=== PATIENT | female | born 1980 | race Caucasian/White ===

== ENCOUNTER → 2024-03-04 09:55 | Outpatient (CLI) | payer OTHER, MEDICAID, SELFPAY ==
--- NOTE | 2024-03-04 10:00 | DI.MRI.S_ITS ---
PROCEDURE: MR CERVICAL SPINE WO CON INDICATIONS: BASELINE SCREENING/foraminal stenosis cervical reg TECHNIQUE: Noncontrast sagittal T1 spin echo and T2 fast spin echo, sagittal STIR, foraminal oblique sagittal T2 fast spin echo, and axial gradient echo or T2 fast spin echo through the cervical spine. COMPARISON: None. FINDINGS: Image quality: Excellent. Alignment and Curvature: There is normal bony alignment. Bone Marrow: Marrow demonstrates normal overall signal. Spinal Cord: Visualized spinal cord has normal size and signal. No cerebellar tonsillar herniation. Paraspinous Soft Tissues: No paravertebral masses. Prevertebral soft tissues are normal in thickness. C2-C3: Normal appearance. C3-C4: Arthropathy related moderate left and mild right foraminal stenosis. No central stenosis. C4-C5: Posterior disc osteophyte complex results in [id number] central stenosis. No foraminal stenosis C5-C6: Posterior disc osteophyte complex with hypertrophic uncovertebral arthropathy. Moderate central stenosis. Moderate bilateral foraminal stenosis. C6-C7: Posterior disc osteophyte complex with mild central stenosis. No foraminal stenosis. C7-T1: Normal appearance. IMPRESSION: Multilevel degenerative disc disease and arthropathy results in varying degrees of central and foraminal stenosis including moderate central and bilateral foraminal stenosis C5-6 Approved by: Balbir Rios M.D. on 03/05/2024 at 18:04
== END ==
PROVIDERS: Family Provider Family Medicine; PCP Family Medicine; Referring Provider Family Medicine; Visit Provider Family Medicine
DX: M48.02 Spinal stenosis, cervical region (principal); M47.812 Spondylosis without myelopathy or radiculopathy, cervical region; M50.321 Other cervical disc degeneration at C4-C5 level
CPT/HCPCS: 72141

== ENCOUNTER 2024-07-25 15:09 | Emergency (ER) | payer OTHER, SELFPAY ==
[2024-07-25 15:12] VITALS: BP 131/82; PULSE 81; RESP 20; TEMP 36.6; O2SAT 98; BMI 21.4
--- NOTE | 2024-07-25 15:25 | DI.US.S_ITS ---
PROCEDURE: US PERIPH VENOUS LOW EXTREM LT INDICATIONS: LLE pain swelling TECHNIQUE: Real-time imaging, as well as color and pulse Doppler interrogation, were performed of the lower extremity deep veins from the inguinal ligament to the popliteal fossa, with documentation of the visualized calf veins. COMPARISON: None. FINDINGS: The common femoral, femoral, popliteal, and the visualized calf veins are normally compressible, and free of intraluminal thrombus. Color and pulse Doppler demonstrate normal phasic intraluminal flow. There is normal augmentation response to distal compression maneuver. IMPRESSION: No findings of lower extremity deep venous thrombosis. Dictated by: Kishore Steward M.D. on 07/25/2024 at 16:32 Approved by: Kishore Steward M.D. on 07/25/2024 at 16:32
--- NOTE | 2024-07-25 15:51 | ED_ITS ---
HPI - Extremity Problem <Bhavana Diaz PA-C - Last Filed: 07/25/24 17:04> General Chief complaint: Extremity Problem,Nontraumatic Stated complaint: left lower leg week and half Time Seen by Provider: 07/25/24 15:51 Source: patient Mode of arrival: Ambulatory History of Present Illness HPI Narrative: Ms. Turpin is a pleasant 43-year-old female with a past medical history of bilateral vein cauterization who presents to the emergency department for left calf pain since 07/13. Patient denies any injury or trauma to the left leg or calf. At the onset of symptoms the patient had significant bruising across her anterior left lower extremity. She saw her PCP who suspected that she had a ruptured vein which was causing the bruising swelling and pain. She has been wearing compression socks with no resolution of her pain however the bruising has resolved. States that she is extremely active and always on her feet. No rashes or flu-like symptoms. No history of blood clots. Related Data Previous Rx's Medication Instructions Recorded sumatriptan succinate 100 mg 100 mg PO PRN ##10 08/07/11 tablet (Imitrex) mupirocin calcium 2 % topical cream 1 richard topical BID ##15 02/14/12 Review of Systems <Bhavana Diaz PA-C - Last Filed: 07/25/24 17:04> Review of Systems ROS Unobtainable: All systems reviewed & are unremarkable except as noted in HPI and below Patient History <Bhavana Diaz PA-C - Last Filed: 07/25/24 17:04> Social History Smoking Status: Never smoker Smoking Status: Never smoker Exam <Bhavana Diaz PA-C - Last Filed: 07/25/24 17:04> Narrative Exam Narrative: GENERAL: 43 year old patient appears stated age. Well-developed patient, in no acute distress. HEAD: Atraumatic. Normocephalic. NECK: Trachea midline. Cervical ROM intact. CARDIOVASCULAR: Regular rate RESPIRATORY: Nonlabored respirations. Speaking in clear, full sentences. GASTROINTESTINAL: Abdomen soft, non-tender, nondistended. EXTREMITIES: Left lower extremity, anterior torres with very faint faded ecchymosis. On the medial posterior aspect of the left calf there is a varicose vein with some overlying tenderness. there is a large varicose vein on the right lower extremity anterior thigh. Strong DP and PT pulses bilaterally and brisk capillary refill in the toes. NEURO: AOx3. Clear speech. Moves all 4 extremities appropriately. SKIN: No rash or erythema of visible areas Initial Vital Signs Initial Vital Signs: Vital Signs Temperature 98 F 07/25/24 15:12 Pulse Rate 81 07/25/24 15:12 Respiratory Rate 20 07/25/24 15:12 Blood Pressure 131/82 07/25/24 15:12 Pulse Oximetry 98 07/25/24 15:12 Oxygen Delivery Method Room Air 07/25/24 15:12 <Juan Antonio Salmeron MD - Last Filed: 07/26/24 09:52> Initial Vital Signs Initial Vital Signs: Vital Signs Temperature 98 F 07/25/24 15:12 Pulse Rate 81 07/25/24 15:12 Respiratory Rate 20 07/25/24 15:12 Blood Pressure 131/82 07/25/24 15:12 Pulse Oximetry 98 07/25/24 15:12 Oxygen Delivery Method Room Air 07/25/24 15:12 Course <Bhavana Diaz PA-C - Last Filed: 07/25/24 17:04> Orders Ordered: ED Orders 07/25/24 15:25 US periph venous low extrem lt Stat Vital Signs Vital signs: Vital Signs - 8 hr 07/25/24 15:12 Temperature 98 F Pulse Rate 81 Respiratory Rate 20 Blood Pressure 131/82 Pulse Oximetry 98 Oxygen Delivery Method Room Air <Juan Antonio Salmeron MD - Last Filed: 07/26/24 09:52> Orders Ordered: ED Orders 07/25/24 15:25 US periph venous low extrem lt Stat Vital Signs Vital signs: Vital Signs - 8 hr 07/25/24 15:12 Temperature 98 F Pulse Rate 81 Respiratory Rate 20 Blood Pressure 131/82 Pulse Oximetry 98 Oxygen Delivery Method Room Air MDM - Extremity (Nontraumatic) <Bhavana Diaz PA-C - Last Filed: 07/25/24 17:04> Medical Records Medical records narrative: None available Imaging Data LLE Venous US: Radiologist's Impression: PROCEDURE: US PERIPH VENOUS LOW EXTREM LT INDICATIONS: LLE pain swelling TECHNIQUE: Real-time imaging, as well as color and pulse Doppler interrogation, were performed of the lower extremity deep veins from the inguinal ligament to the popliteal fossa, with documentation of the visualized calf veins. COMPARISON: None. FINDINGS: The common femoral, femoral, popliteal, and the visualized calf veins are normally compressible, and free of intraluminal thrombus. Color and pulse Doppler demonstrate normal phasic intraluminal flow. There is normal augmentation response to distal compression maneuver. IMPRESSION: No findings of lower extremity deep venous thrombosis. [facility] Narrative Medical decision making narrative: 43-year-old female with a past medical history of bilateral vein cauterization who presents to the emergency department for left calf pain since 07/13. Nontraumatic. Differential diagnosis includes but is not limited to varicose vein, ruptured vein, DVT, calf strain, etc. On exam the patient is in no acute distress, nontoxic appearing, vital signs within normal limits. She is some tenderness to palpation of the left lower extremity in the distribution of the varicose vein, with some residual healing ecchymosis. Left lower extremity venous ultrasound was obtained revealing no DVT. I do suspect the patient's symptoms are related to possible venous insufficiency and she has an appointment to follow up with a vein specialist on 08/09/2024. Recommended supportive care with acetaminophen / ibuprofen, compression socks. ED return precautions discussed. Patient is agreeable with the plan and stable for discharge home. <Juan Antonio Salmeron MD - Last Filed: 07/26/24 09:52> [facility] Narrative Medical decision making narrative: 43-year-old female with a past medical history of bilateral vein cauterization who presents to the emergency department for left calf pain since 07/13. Nontraumatic. Differential diagnosis includes but is not limited to varicose vein, ruptured vein, DVT, calf strain, etc. On exam the patient is in no acute distress, nontoxic appearing, vital signs within normal limits. She is some tenderness to palpation of the left lower extremity in the distribution of the varicose vein, with some residual healing ecchymosis. Left lower extremity venous ultrasound was obtained revealing no DVT. I do suspect the patient's symptoms are related to possible venous insufficiency and she has an appointment to follow up with a vein specialist on 08/09/2024. Recommended supportive care with acetaminophen / ibuprofen, compression socks. ED return precautions discussed. Patient is agreeable with the plan and stable for discharge home. Discharge Plan Departure Patient Disposition: Home Clinical Impression: Acute pain of left lower extremity Instructions: DI for Edema Due to Venous Stasis Activity Restrictions/Additional Instructions: Dear Mr. Turpin, Today the ultrasound of your left lower extremity revealed no blood clot. It is very important to follow up with a vein specialist for further evaluation. Wear compression socks every day especially when walking or when upright for prolonged period of time. Please use RICE therapy for your pain in addition to ibuprofen/acetaminophen. Rest the painful area. Ice the area of pain/swelling for at least 15 minutes, 4x a day. Compress the area of swelling using a brace, wrap, or splint if applied. Elevate the painful or swollen extremity by supporting it above the level of the heart with pillows when sitting or laying. Please take Ibuprofen (Motrin/Advil) or Acetaminophen (Tylenol) for pain. These are available over the counter. You may take Ibuprofen 600 mg every 8 hours with food for pain. You may also take Acetaminophen 650 mg every 4-6 hours for pain. Do not exceed 3000 mg of Tylenol a day as this can cause liver damage. Do not drink alcohol with either of these medications. Please follow up with your primary care doctor within the next 2-3 days for ER follow-up. (If you do not have a PCP you can call [phone]. to schedule an appointment with an [facility] Primary Care Provider) IF YOU DEVELOP ANY NEW OR WORSENING SYMPTOMS, RETURN TO THE ER! Please read the attached instructions, they highlight more specific treatments and interventions for you at home. Thank you for letting me participate in your care, Bhavana Diaz PA-C Prescriptions: No Action sumatriptan succinate [Imitrex] 100 MG tablet 100 mg PO PRN Qty: 10 1RF mupirocin calcium 2 % cream 1 richard Topical BID Qty: 15 0RF Referrals: Syd Stockton MD [Primary Care Provider] - Stand Alone Forms: Patient Portal/API/Survey ED Sign-out <Juan Antonio Salmeron MD - Last Filed: 07/26/24 09:52> Cosign ED Attending Cosignature Attestation: Physician attestation: I was readily available for consultation at all times. I agree with assessment and plan of care. Juan Antonio Salmeron MD
[2024-07-25 17:13] VITALS: BP 128/75; PULSE 73; RESP 16; O2SAT 98
== END 2024-07-25 17:14 | disposition home or self-care (01) ==
PROVIDERS: Emergency Provider Physician Assistant; Family Provider Family Medicine; PCP Family Medicine
DX: M79.662 Pain in left lower leg (principal)
CPT/HCPCS: 93971; 99281; 99283